=== PATIENT | male | born 1980 | race Caucasian/White ===

== ENCOUNTER 2018-04-06 23:29 | Emergency (ER) | payer BC ==
[~2018-04-06] VITALS: Ht 182.9 cm; Wt 133.0 kg
[2018-04-06 23:34] VITALS: TEMP 36.6; Ht 182.9 cm; Wt 133.0 kg
[2018-04-07 00:11] LABS: BASO % 0.2 %; BASO ABS # 0.01 K/uL (0-0.2); EOS % 2.1 %; EOS ABS # 0.14 K/uL (0-0.5); HEMATOCRIT 42.8 % (42-52); HEMOGLOBIN 15.1 g/dL (14.0-18.0); LYMPH ABS # 2.32 K/uL (1.2-3.4); MEAN CELL VOLUME 87.3 fL (80-100); MEAN CORPUSCULAR HEMOGLOBIN 30.8 pg (25-34); MEAN CORPUSCULAR HGB CONC 35.3 g/dl (32-36); MEAN PLATELET VOLUME 9.2 fL (7.4-10.4); MONO % 8.3 %; MONO ABS # 0.55 K/uL (0.11-0.59); NEUT % 54.4 %; PLATELET COUNT 196 K/uL (130-400); RED CELL DISTRIBUTION WIDTH CV 12.6 % (11.5-14.5); RED CELL DISTRIBUTION WIDTH SD 40.4 fL (36.4-46.3); WHITE BLOOD COUNT 6.62 K/uL (4.8-10.8)
[2018-04-07 00:35] LABS: ALKALINE PHOSPHATASE 66 U/L (45-117); ALT/SGPT 29 U/L (12-78); BLOOD UREA NITROGEN 15 mg/dl (7-18); CALCIUM 8.4 mg/dl (8.5-10.1); CARBON DIOXIDE 28 mmol/L (21-32); CREATININE 0.95 mg/dl (0.60-1.40); GLUCOSE 145 mg/dl (70-99); TOTAL PROTEIN 7.9 gm/dl (6.4-8.2)
[2018-04-07 00:47] LABS: AST/SGOT 21 U/L (15-37); POTASSIUM 3.7 mmol/L (3.5-5.1); SODIUM 141 mmol/L (136-145)
[2018-04-07] MEDS ORDERED: DiphenhydrAMINE HCL 50 MG/ML VIAL IV STA (01:25)
[2018-04-07] MEDS ORDERED: OPTIRAY 320 IV PRN (01:45)
--- NOTE | 2018-04-07 02:10 | EMERGENCY ROOM VISIT NOTE ---
History First contact with patient: 23:39 Chief Complaint: LEG PAIN,LEG INJURY Stated Complaint: POSS BLOOD CLOT History of Present Illness The patient is a 37 year old male who presents to the Emergency Room with complaints of right leg pain and swelling for the past few days who feels mildly short of breath. Patient states that in 2010 he developed a DVT from an ankle fracture and then PEs. He states he was on Lovenox for 6 months and then he stopped it. Patient denies recent travel, tobacco use, IV drug abuse. Patient states last week he was playing football with his son and his son collided with his knee. Patient states the same leg is in the leg he had DVT in 7 years ago. Patient denies chest pain, abdominal pain, fevers, flulike illness, vomiting, diarrhea, numbness, tingling, localized weakness. Review of Systems An 10 system review of systems was completed with positives and pertinent negatives listed in the HPI. Past Medical/Surgical History DVT, PE Social History Smoking Status: Never Smoker Smokeless Tobacco Use: No Drug Use: none Housing Status: lives with family Occupation Status: employed Current/Historical Medications No Active Prescriptions or Reported Meds Physical Exam Vital Signs Date Time Temp Pulse Resp B/P (MAP) Pulse Ox O2 Delivery O2 Flow Rate FiO2 04/07/18 01:32 76 18 133/87 96 Room Air 04/06/18 23:34 36.6 82 20 154/90 97 Room Air Physical Exam VITALS: Vitals are noted on the nurse's note and reviewed by myself. Vital signs hypertensive. GENERAL: pleasant male, in no acute distress, nondiaphoretic, well-developed well-nourished. SKIN: Right lower leg erythematous and edematous tender to palpation over the calf. The rest of the skin was without rashes, erythema, edema, or bruising. There is no tenting of the skin. Capillary reflex less than 2 seconds. HEAD: Normocephalic atraumatic. EARS: External auditory canals clear, tympanic membranes pearly jones without erythema or effusion bilaterally. EYES: Pupils equal round and reactive to light and accommodation. Conjunctivae without injection, sclerae without icterus. NOSE: Patent, turbinates without inflammation or discharge. MOUTH: Mucous membranes moist. Pharynx without erythema or exudate. Uvula midline. Airway patent. Tongue does not deviate. NECK: Supple without nuchal rigidity. No lymphadenopathy. No thyromegaly. Cervical spine is nontender. No JVD. HEART: Regular rate and rhythm without murmurs gallops or rubs. LUNGS: Clear to auscultation bilaterally without wheezes, rales or rhonchi. No retractions or accessory muscle use. ABDOMEN: Positive bowel sounds x 4. Normal tympanic percussion. Soft, nontender, without masses or organomegaly. Anguiano sign negative. No guarding or rebound tenderness. No CVA tenderness MUSCULOSKELETAL: No muscle atrophy noted. Right lower leg erythematous and edematous with positive Homans sign. Pedal pulses +2 equal and present bilaterally. Bilateral lower legs full range of motion and nontender to palpation. NEURO: Patient was alert and oriented to person place and time. Normal sensation to light and sharp touch. No focal neurological deficits. Medical Decision & Procedures Laboratory Results 04/06/18 23:55 Red Blood Count 4.90, Mean Corpuscular Volume 87.3, Mean Corpuscular Hemoglobin 30.8, Mean Corpuscular Hemoglobin Concent 35.3, Mean Platelet Volume 9.2, Neutrophils (%) (Auto) 54.4, Lymphocytes (%) (Auto) 35.0, Monocytes (%) (Auto) 8.3, Eosinophils (%) (Auto) 2.1, Basophils (%) (Auto) 0.2, Neutrophils # (Auto) 3.60, Lymphocytes # (Auto) 2.32, Monocytes # (Auto) 0.55, Eosinophils # (Auto) 0.14, Basophils # (Auto) 0.01 04/06/18 23:55 Test 04/06/18 23:55 White Blood Count 6.62 K/uL (4.8-10.8) Red Blood Count 4.90 M/uL (4.7-6.1) Hemoglobin 15.1 g/dL (14.0-18.0) Hematocrit 42.8 % (42-52) Mean Corpuscular Volume 87.3 fL (80-100) Mean Corpuscular Hemoglobin 30.8 pg (25-34) Mean Corpuscular Hemoglobin Concent 35.3 g/dl (32-36) Platelet Count 196 K/uL (130-400) Mean Platelet Volume 9.2 fL (7.4-10.4) Neutrophils (%) (Auto) 54.4 % Lymphocytes (%) (Auto) 35.0 % Monocytes (%) (Auto) 8.3 % Eosinophils (%) (Auto) 2.1 % Basophils (%) (Auto) 0.2 % Neutrophils # (Auto) 3.60 K/uL (1.4-6.5) Lymphocytes # (Auto) 2.32 K/uL (1.2-3.4) Monocytes # (Auto) 0.55 K/uL (0.11-0.59) Eosinophils # (Auto) 0.14 K/uL (0-0.5) Basophils # (Auto) 0.01 K/uL (0-0.2) RDW Standard Deviation 40.4 fL (36.4-46.3) RDW Coefficient of Variation 12.6 % (11.5-14.5) Immature Granulocyte % (Auto) 0.0 % Immature Granulocyte # (Auto) 0.00 K/uL (0.00-0.02) Bedside D-Dimer > 450 ng/mlFEU (0-450) Anion Gap 7.0 mmol/L (3-11) Est Creatinine Clear Calc Drug Dose 147.3 ml/min Estimated GFR () 116.4 Estimated GFR (Non- 100.4 BUN/Creatinine Ratio 15.9 (10-20) Calcium Level 8.4 mg/dl (8.5-10.1) Total Bilirubin 0.3 mg/dl (0.2-1) Direct Bilirubin < 0.1 mg/dl (0-0.2) Aspartate Amino Transf (AST/SGOT) 21 U/L (15-37) Alanine Aminotransferase (ALT/SGPT) 29 U/L (12-78) Alkaline Phosphatase 66 U/L (45-117) Bedside Troponin I < 0.030 ng/ml (0-0.045) Total Protein 7.9 gm/dl (6.4-8.2) Albumin 4.0 gm/dl (3.4-5.0) ED Course Prior records reviewed and summarized above. Triage Nursing notes reviewed.. The patient's history was concerning for swelling and pain in the leg with mild shortness of the. Differential diagnosis: Etiologies such as DVT, anxiety, PE, musculoskeletal, infection, joint effusion , trauma, lymphedema, idiopathic, CHF, as well as others were entertained.. Physical examination: The physical examination revealed Neurovascularly intact. ER treatment provided: Patient was observed. He declined pain medicine On reassessment the patient felt better. Diagnostics interpreted by me: The labs revealed hyperglycemia without DKA. Negative troponin. Elevated d- dimer. Imaging studies: CTA CHEST: No evidence of PE. Lungs are clear. No pleural effusions. No adenopathy. Heart size is normal. Aorta is unremarkable. Radiologist: Bj Trejo MD Ultrasound negative for DVT Chest x-ray with no acute consolidation, pneumothorax free of my interpretation HEART SCORE: Hx: high/mod/low suspicion: 0 ECG: ST depression/nonspecific changes/normal: 0 Age: Greater than 65/45-64/less than 45: 0 Risk factors: (Hypertension, hyperlipidemia, diabetes, coronary disease, tobacco use, cocaine use): 0 Troponin: Greater than 2 times normal limits/1-2 times normal limits/normal: 0 Total: 0 Wells Score Symptoms of DVT 3pt: 3 Alternative diagnoses better explains illness 3pts: 0 Tachycardia greater than 100 1.5 pts 0 Immobilization greater than 3 days or surgery in the previous 4 weeks 1.5 pts: 0 Prior history of DVT or PE 1.5 pts: 1.5 Presence of hemoptysis 1pt: 0 Presence of malignancy 1pt: 0 (Score greater than 6 is high probability, score 2-6 moderate probability, score less than 2 low probability) Total: 4.5 The pulmonary embolism rule out criteria (PERC rule) Age <50 years 0 Heart rate <100 bpm 0 Oxyhemoglobin saturation =95% 0 No hemoptysis 0 No estrogen use 0 No prior DVT or PE yes No unilateral leg swelling yes No surgery/trauma requiring hospitalization within the prior four weeks 0 (0 low risk) Total: 2 yes's This appears to be consistent with right lower leg pain and swelling most likely from injury with the child from a few days ago. Patient had no leukocytosis. He states the redness is improving. I do not believe this cellulitis. Patient was informed of cellulitis and using shared decision making process we opted to observe the area and if the redness spreads he will see his family care doctor for antibiotics. Patient was neurovascularly and neurologically intact. No DVT. Normal EKG. Negative heart score. D-dimer was elevated so he was sent for further imaging. CTA was negative. Patient states 7 years ago he developed 1 HIVE behind the ear supposedly after an IV contrast scan but did not inform me of this until he was in CT scanner. He was ordered for Benadryl but had no reaction and declined the medication. I felt this is reasonable. By the evaluation outlined above emergent etiologies such as DVT, septic joint, trauma, infection, CHF, MT, PE, as well as others were deemed relatively unlikely. Patient was advised to return to the ER meaty for chest pain, difficulty breathing, spreading of redness, fevers, worsening signs or symptoms or as needed. He is advised to follow-up family care in a few days for reevaluation and recheck of his blood sugar. The pt informed about the findings as listed above. All questions were answered and pleased with the treatment. Return instructions were outlined and the patient was discharged in stable condition. Referral: The patient was referred back to their primary care physician for follow-up in 2 to 3 days for a recheck of the current condition. Case reviewed with my attending The chart was completed utilizing [employer] Speech voice recognition software. Grammatical errors, random word insertions, pronoun errors, and incomplete sentences are an occassional consequence of this system due to software limitations, ambient noise, and hardware issues. Any formal questions or concerns about the content, text, or information contained within the body of this dictation should be directly addressed to the physician assistant professor of theater for clarification. Medical Decision As above Medication Reconcilliation Current Medication List: was personally reviewed by me Blood Pressure Screening Patient's blood pressure: Elevated blood pressure Blood pressure disposition: Elevated BP felt to be situational Impression Primary Impression: Right leg pain Additional Impressions: Dyspnea Hyperglycemia Departure Information Dispostion Home / Self-Care Condition GOOD Prescriptions No Active Prescriptions or Reported Meds Patient Instructions [facility] Additional Instructions Your blood sugar is elevated today. Recheck this with family care when you return home. Ibuprofen(Motrin, Advil) may be used for fever or pain. Use 600mg every six hours as needed. Take with food. Avoid using more than 2400mg in a 24 hour period. Do not use 2400mg per day for more than three consecutive days without physician direction. Prolonged inappropriate use can lead to stomach upset or ulcers. (AND/OR) Acetaminophen(Tylenol) may be used for fever or pain. Use 1000mg every six hours as needed. Avoid using more than 3000mg in a 24 hour period. Rest and drink plenty of fluids as tolerated. Continue current medications. Avoid strenuous activities and anything that worsens your pain. Resume normal activities once your symptoms resolve. Return to the ER immediately for worsening or persistent leg problems, spreading of redness, abdominal pain, vomiting, fevers, chest pains, difficulty breathing, worsening of your condition, or as needed. Follow up with your primary physician in 2-3 days for a recheck of your current condition. Problem Qualifiers
[2018-04-07 02:32] VITALS: BP 140/89; PULSE 75; O2SAT 98
--- NOTE | 2018-04-07 06:30 | DIAGNOSTIC IMAGING REPORT ---
ULTRASOUND R VENOUS DOPP LOWER EXT UNILAT CLINICAL HISTORY: right lower leg swelling COMPARISON STUDY: No previous studies for comparison. FINDINGS: Real-time and color flow Doppler imaging were performed. Flow was seen within the femoral, popliteal and calf veins with no intraluminal thrombus demonstrated. The saphenous vein is patent. IMPRESSION: No evidence of right lower extremity DVT. Electronically signed by: Donald Anguiano M.D. 04/07/2018 6:29 AM Dictated Date/Time: 04/07/2018 6:28 AM
--- NOTE | 2018-04-07 06:50 | DIAGNOSTIC IMAGING REPORT ---
CHEST ONE VIEW PORTABLE CLINICAL HISTORY: sob COMPARISON STUDY: No previous studies for comparison. FINDINGS: The heart is the upper limits of normal in size. There is no failure. There is no focal pulmonary consolidation. There are no pleural effusions.[ IMPRESSION: No active disease in the chest. Electronically signed by: Donald Anguiano M.D. 04/07/2018 6:48 AM Dictated Date/Time: 04/07/2018 6:48 AM
--- NOTE | 2018-04-07 06:56 | DIAGNOSTIC IMAGING REPORT ---
(CHEST FOR PE) ANGIO WITH CT DOSE: 565.71 mGycm HISTORY: 37 years-old Male presents with acute shortness of breath with elevated d-dimer TECHNIQUE: Multiple CTA images of the chest were obtained after the intravenous administration of 118 ml Optiray 320. Coronal and sagittal MIPS were obtained from the axial data set and were submitted for review. A dose lowering technique was utilized adhering to the principles of ALARA. COMPARISON: Duplex venous Doppler study of same day, chest radiograph 04/06/2018 FINDINGS: CTA: Pulmonary arterial tree is opacified to the level of the segmental branches with the subsegmental branches not well seen secondary to contrast bolus timing. No evidence of pulmonary thromboembolic disease. Thoracic aorta is normal in both course and caliber. No aneurysm or dissection.Heart size is normal. CT CHEST: No dominant thyroid nodule is seen. No pathologically adenopathy by CT size criteria. There is no pneumothorax, pleural effusion or focal airspace consolidation. The imaged upper abdominal structures are normal. Multilevel degenerative changes throughout the lower thoracic and upper lumbar spine with spondylitic spurring. IMPRESSION: No acute intrathoracic abnormality identified, specifically no acute aortic pathology or evidence of pulmonary thromboembolic disease. The above report was generated using voice recognition software. It may contain grammatical, syntax or spelling errors. Electronically signed by: Judson Hoang M.D. 04/07/2018 6:55 AM Dictated Date/Time: 04/07/2018 6:50 AM
== END 2018-04-07 02:37 | disposition home or self-care (01) ==
LOC: C.EDB 23:33
DX: M79.604 Pain in right leg (principal); R06.00 Dyspnea, unspecified; R73.9 Hyperglycemia, unspecified; Z86.711 Personal history of pulmonary embolism; Z86.718 Personal history of other venous thrombosis and embolism